=== PATIENT | male | born 1975 | race Two or more races ===

== ENCOUNTER → 2021-12-18 12:40 | Outpatient (BNVA) | payer OTHER, SELFPAY | PROVIDERS: PCP Internal Medicine; Visit Provider Internal Medicine Endocrinology, Diabetes & Metabolism | DX: Z13.89 Encounter for screening for other disorder (principal) ==

== ENCOUNTER 2022-01-08 07:30 | Outpatient (REF) | payer OTHER, SELFPAY | END 2022-01-08 07:31 | disposition home or self-care (01) | LOC: HO.LAB 07:30 | PROVIDERS: PCP Internal Medicine; Visit Provider Internal Medicine Endocrinology, Diabetes & Metabolism | DX: R53.83 Other fatigue (principal); E29.1 Testicular hypofunction | CPT/HCPCS: 36415; 82533 ==

== ENCOUNTER 2022-03-27 10:24 | Outpatient (REF) | payer OTHER, SELFPAY ==
[2022-03-27 10:48] LABS: Hematocrit 45.5 % (42.0-52.0); Hemoglobin 15.5 g/dl (14.0-18.0)
[2022-03-27 11:40] LABS: Free T4 (Free Thyroxine) 1.11 ng/dL (0.71-1.85); Thyroid Stimulating Hormone 0.09 uIU/mL (0.32-4.0)
[2022-04-01 10:21] LABS: Testosterone, Free 77.8 pg/mL (35.0-155.0); Testosterone, Total 305 ng/dL (250-1100)
== END 2022-03-27 10:25 | disposition home or self-care (01) ==
LOC: HO.LAB 10:24
PROVIDERS: PCP Internal Medicine; Visit Provider Internal Medicine Endocrinology, Diabetes & Metabolism
DX: E03.9 Hypothyroidism, unspecified (principal); E29.1 Testicular hypofunction
CPT/HCPCS: 36415; 84402; 84403; 84439; 84443; 85014; 85018

== ENCOUNTER 2022-06-11 14:24 | Outpatient (REF) | payer OTHER, SELFPAY ==
[2022-06-11 15:06] LABS: Hematocrit 47.3 % (42.0-52.0)
[2022-06-19 18:37] LABS: Testosterone, Free 81.9 pg/mL (35.0-155.0); Testosterone, Total 422 ng/dL (250-1100)
== END 2022-06-11 14:25 | disposition home or self-care (01) ==
LOC: HO.LAB 14:24
PROVIDERS: PCP Internal Medicine; Visit Provider Internal Medicine Endocrinology, Diabetes & Metabolism
DX: E29.1 Testicular hypofunction (principal)
CPT/HCPCS: 36415; 84402; 84403; 85014; 85018

== ENCOUNTER 2022-09-10 13:53 | Outpatient (REF) | payer OTHER, SELFPAY ==
[2022-09-10 14:24] LABS: Hematocrit 48.1 % (42.0-52.0); Hemoglobin 16.6 g/dl (14.0-18.0)
[2022-09-10 15:14] LABS: Free T4 (Free Thyroxine) 0.89 ng/dL (0.71-1.85)
[2022-09-16 13:58] LABS: Testosterone, Free 95.5 pg/mL (35.0-155.0); Testosterone, Total 410 ng/dL (250-1100)
== END 2022-09-10 13:54 | disposition home or self-care (01) ==
LOC: HO.LAB 13:53
PROVIDERS: Visit Provider Internal Medicine Endocrinology, Diabetes & Metabolism
DX: E03.9 Hypothyroidism, unspecified (principal); E29.1 Testicular hypofunction
CPT/HCPCS: 36415; 84402; 84403; 84439; 84443; 85014; 85018